=== PATIENT | male | born 1940 | race Caucasian/White ===

== ENCOUNTER 2016-09-05 11:55 | Observation (INO) | payer OTHER ==
--- NOTE | 2016-09-04 09:54 | MH ---
cc: LEWIS ECHEVERRIA DMD DATE OF : 1940 DATE OF ADMISSION: 09/05/2016 ADMITTING DIAGNOSIS: HISTORY OF PRESENT ILLNESS: This is a 75 year-old male who came to my office on August 22, 2016. On August 07, 2016, he had a ladder that fell on him when he was putting it away and struck him in the face/eye region. He was then taken to [facility] where he went, and was transferred to [facility] in [place]. As per the patient he was there for four days, not only waiting for the swelling to come down but waiting for an ophthalmology consult. He reports that the plastic surgeon did not do surgery and the patient was discharged without the surgery. He was not seen by any dry pan feeder. He called to follow up with the dry pan feeder but then he was not given any follow up appointment. He then proceeded to go see Dr. Gastelum, his primary care, who then referred him to my office. I have seen and examined this patient. His chief complaint is that he has a double/blurred vision, depth perception is off to different heights. He reports he has to turn his head to line up his vision. Even when he looks at a computer screen he has diplopia. He has seen the dry pan feeder. Now he is back to my office for the history and physical. PAST MEDICAL HISTORY: 1. Coronary artery disease. 2. History of NH 2013. 3. Hyperlipidemia. 4. Chronic kidney disease stage II. 5. History of colon polyps. 6. Impaired glucose tolerance. 7. History of iritis. 8. History of hypertension. PAST MEDICAL HISTORY 1. Loratadine 2. Aspirin 325 mg 1 tablet daily 3. Furosemide 20 mg tablet 4. Carvedilol 3.25 milligrams tablet. 5. Nitrostat 0.4 milligrams tablet sublingual. 6. Temazepam 50 milligram capsule. 7. Atrovent 40 milligrams. 8. Benzoate 200 milligrams ALLERGIES NO KNOWN DRUG ALLERGIES. SOCIAL HISTORY Denies any tobacco, alcohol, any illicit drug use. PAST SURGICAL HISTORY: July 31, 2013, CABG x5. FAMILY HISTORY: Father with stroke, heart attack, rheumatoid arthritis, NH. Mother with stroke, arthritis. Siblings: Heart attack, diagnosed with NH. REVIEW OF SYSTEMS General: Alert, awake and oriented x3 in no acute distress. Head/eyes: Reports double vision, straight gaze also looking up and down. History of blurry vision in that eye. History of some blurry vision. Past history of iritis. Cardiovascular: Denies any chest pain, palpitation, any tachycardia. History of coronary artery bypass graft. History of hyperlipidemia and hypertension as per previous history of present illness. Respiratory: Denies any cough, any chest congestion, any wheezing, shortness of breath. Gastrointestinal: Denies any abdominal discomfort, IBS, peptic ulcer disease, denies diarrhea. Musculoskeletal: Denies limitation of movement, any joint swelling, any muscle pain. Neurological: Denies any seizures, neurological disorders. Endocrine: Denies any hormonal disturbances, any diabetes mellitus. Mouth. Denies any dental difficulties. Denies any intraoral discomfort. PHYSICAL EXAMINATION: Vital signs: Stable. General: Alert, awake and oriented x3, in no acute distress. HEENT: Minimal left periorbital ecchymosis, faint. Diplopia, upward gaze. He also has some blurry vision, residual. Also reports some if he has to turn his head a little bit to align the vision better. Pupils are more equal today. The left is 5 millimeter, the right is 3 millimeter. Previously he had a mal-shaped pupil on the left eye. He has some diplopia in the downward gaze and the upward gaze. Facial bones, nasal bones palpated. No crepitus. Positive range of movement of the neck. Extraocular movements are not intact as he has limited elevation in the upgaze specifically, more than on the lower gaze. Nose: Airway is patent. Symmetrical. Head: The rest of the head exam is normal. Neck: Positive range of movement of the neck. No tenderness noted. Cardiovascular: Regular rate and rhythm. Respiratory: Clear to auscultation bilaterally. GI: Positive bowel sounds. Abdomen: Nontender, nondistended, soft. Musculoskeletal: Positive range of movement, upper extremities, lower extremities. Neurological: Cranial nerves II-XII grossly intact. IMAGING STUDIES: CT scan of the left face orbital region shows a blowout fracture of the left orbit. There is herniation of content extending going posteriorly. It is a severe defect. Also it showed previously a retrobulbar hemorrhage anterior to the optic nerve. EKG shows a sinus rhythm. History of inferior infarct. ASSESSMENT/PLAN This is a 75-year-old male status post ladder falling on him on August 07, 2016, which resulted in him having the left orbital floor blow out fracture. He has affected his vision with a history of blurry vision and diplopia, now with straight gaze, but also looking up and looking down. He also says that he has to turn his head to line up his vision. He was not operated on previously. At this point he is going to require reconstruction of the left orbital floor with titanium mesh. He has already seen his primary physician, Dr. Gastelum, at [phone], and then he has also seen the dry pan feeder, Dr. Rodriguez, , who is also recommending surgery. No ocular surgery required. He is just going to follow up with him. Benefits, risks indication of the procedure, procedure in detail and the options of no treatment were all discussed with this patient and his . Risks not limited any postop pain, infection, bleeding, damage to the adjacent soft tissue, hard tissue, anesthesia complications, which includes , malunion, nonunion of the orbital floor, with a mesh, vision disturbances, including blindness, further surgeries as required. Also, entropion, ectropion, enophthalmos and exophthalmos. All questions and concerns were addressed. Lewis Echeverria DMD RRT/LUIS MIGUEL /8:44 AM /9:10 AM HIRO
[~2016-09-05] VITALS: Ht 172.7 cm; Wt 90.5 kg
[2016-09-05] MEDS ORDERED: ONDANSETRON HCL 4 MG/2 ML VIAL IV PUSH ONE (12:00)
[2016-09-05] MEDS ORDERED: NEOSTIGMINE 3 MG/3 ML SYR IV ONE (12:00)
[2016-09-05] MEDS ORDERED: PHENYLEPH/NS 1000 MCG/10 ML SYR IV ONE (12:00)
[2016-09-05] MEDS ORDERED: LACTATED RINGER'S 1000 ML INJ 1,000 ML IV ONE (12:00)
[2016-09-05] MEDS ORDERED: PROPOFOL 200 MG/20 ML AMP IV ONE (12:00)
[2016-09-05] MEDS ORDERED: ASPI325T PO (12:37)
[2016-09-05] MEDS ORDERED: FURO20TA PO (12:37)
[2016-09-05] MEDS ORDERED: CARV3.12 PO (12:37)
[2016-09-05] MEDS ORDERED: NITR0.4S SL (12:38)
[2016-09-05] MEDS ORDERED: ATOR40TA16 PO (12:39)
[2016-09-05] MEDS ORDERED: TEMA15CA PO (12:39)
[2016-09-05] MEDS ORDERED: ceFAZolin 1,000 MG/NS 100 ML IV SCH ×2 (12:45)
[2016-09-05] MEDS ORDERED: INSULIN HUMAN REGULAR 1,000 UNITS/10 ML VIAL SQ PRN (12:45)
[2016-09-05] MEDS ORDERED: SODIUM CHLORID 0.9% 500 ML IV PRN (12:45)
[2016-09-05] MEDS ORDERED: CHLORHEXIDINE GLUCONATE 2 % 1 PACK (2 CLOTHS) TOPICAL PRN (12:45)
[2016-09-05] MEDS ORDERED: LACTATED RINGER'S 1000 ML IV PRN (12:45)
[2016-09-05] MEDS ORDERED: METOPROLOL TARTRATE 25 MG TAB PO PRN (12:45)
[2016-09-05] MEDS ORDERED: POVIDONE IODINE 5% (ANTISEPSIS KIT) 4 APPLICATIONS EACH NARE PRN (12:45)
[2016-09-05 13:25] LABS: AUTOMATED NEUTROPHIL # 2.3 TH/MM3 (1.8-7.7); BASOPHIL % 0.3 % (0.0-2.0); EOSINOPHIL # 0.1 TH/MM3 (0-0.4); EOSINOPHIL % 2.5 % (0.0-4.0); HEMATOCRIT 44.2 % (39.0-51.0); HEMO FLAGS DIFF FINAL; LYMPH % 25.4 % (9.0-44.0); MEAN CELL VOLUME 93.4 FL (80.0-100.0); MEAN CORPUSCULAR HEMOGLOBIN 31.7 PG (27.0-34.0); MEAN CORPUSCULAR HGB CONC 33.9 % (32.0-36.0); MONO % 15.9 % (0.0-8.0); NEUT % 55.9 % (16.0-70.0); PLATELET COUNT 139 TH/MM3 (150-450); RED BLOOD COUNT 4.73 MIL/MM3 (4.50-5.90); RED CELL DISTRIBUTION WIDTH 13.3 % (11.6-17.2)
[2016-09-05] MEDS ORDERED: SODIUM CHLORIDE 0.9% 20 ML VIAL ONE (13:41)
[2016-09-05] MEDS ORDERED: BALANCED SALT SOLN OPHT IRRIG 15 ML BTL ONE ×2 (13:41→15:29)
[2016-09-05] MEDS ORDERED: GELATIN 12 MM/7 MM FOAM ONE (13:42)
[2016-09-05] MEDS ORDERED: ceFAZolin INJ 1,000 MG VIAL ONE (13:42)
[2016-09-05] MEDS ORDERED: DEXAMETHASONE SOD PHOS 4 MG/ML VIAL ONE ×2 (13:42→13:50)
[2016-09-05] MEDS ORDERED: LIDOCAINE 1%/EPINEPHrine 1:100,000 SOLN 20 ML VIAL ONE (13:42)
[2016-09-05] MEDS ORDERED: LIDOCAINE 2%/EPINEPHrine 1:100,000 30ML MDV ONE (13:42)
[2016-09-05] MEDS ORDERED: fentaNYL CITRATE 250 MCG/5 ML AMP ONE (13:50)
[2016-09-05] MEDS ORDERED: MIDAZOLAM HCL 2 MG/2 ML VIAL ONE (13:50)
[2016-09-05] MEDS ORDERED: ARTIFICIAL TEARS OPTH OINT 3.5 APPLIC/3.5 GM TUBO ONE (13:50)
[2016-09-05] MEDS ORDERED: methylPREDNISolone SOD SUCC 125 MG/2 ML VIAL ONE (16:00)
[2016-09-05] MEDS ORDERED: TEMAZEPAM 15 MG CAP PO PRN (16:30)
[2016-09-05] MEDS ORDERED: FUROSEMIDE 20 MG TAB PO PRN (16:30)
[2016-09-05] MEDS ORDERED: NITROGLYCERIN 0.4 MG SL 25 TABS/BTL SL PRN (16:30)
--- NOTE | 2016-09-05 18:27 | PD.CONS ---
HPI Service [facility] Consult Requested By Dr. Echeverria Reason for Consult Medical management s/p reconstruction of the left orbital floor with titanium mesh Primary Care Physician Fannie Gastelum MD Diagnoses: History of Present Illness Mr. Tao is a 76-year-old male with a known history of CAD, history of [place], CKD , and hypertension who sustained a left orbital floor blowout in July of this year, after a ladder fell on his head and struck his eye. He was seen at [facility] in [facility] and then transferred to [place] for further treatment. At that time patient did not have surgery and was discharged to see an radio frequency engineer in the outpatient setting. Per patient, due to miscommunication he never followed-up with an radio frequency engineer but was seen by his PCP who referred him to Dr. Echeverria. Since the incident, the patient has complaint of blurry vision in both eyes and diplopia. At this time, patient is seen in the PACU, with complaints of pain in the left eye, numbness in the face and continued blurry vision. Denies any recent fever, chills, cough, chest pain or shortness of breath. Review of Systems Eyes: COMPLAINS OF: Blurred vision, Diplopia, Eye pain, Double Vision Except as stated in HPI: all other systems reviewed are Neg Past Family Social History Allergies: Coded Allergies: No Known Allergies (Unverified , 09/05/16) Past Medical History Coronary artery disease. History of MN 2013. Hyperlipidemia. Chronic kidney disease stage II. History of colon polyps. Impaired glucose tolerance. History of iritis. History of hypertension. Past Surgical History CABG x 5 in 2013 Reported Medications Reported Atorvastatin (Atorvastatin Calcium) 40 Mg Tab 40 Mg PO DAILY Temazepam 15 Mg Cap 15 Mg PO HS PRN Nitrostat SL (Nitroglycerin) 0.4 Mg Subl 0.4 Mg SL DIRECTED PRN 1 tablet under the tongue as needed for chest pain. Repeat every 5 minutes for a total of 3 DOSES or call 911 if NO relief. Furosemide 20 Mg Tab 20 Mg PO DAILY PRN Aspirin 325 Mg Tab 325 Mg PO DAILY Carvedilol 3.125 Mg Tab 3.125 Mg PO DAILY Active Ordered Medications Current Medications Medications (Trade) Dose Ordered Sig/Maci Route Start Time Stop Time Status Last Admin Lactated Ringer's 1,000 ml @ 30 mls/hr Q24H PRN IV 09/05/16 12:45 09/08/16 12:44 09/05/16 13:10 (NS 500 ml Inj) 500 ml @ 30 mls/hr [id number] PRN IV 09/05/16 12:45 09/08/16 12:44 (Coreg) 3.125 mg DAILY PO 09/06/16 09:00 (Lasix) 20 mg DAILY PRN PO 09/05/16 16:30 (Nitrostat Sl) 0.4 mg UNSCH PRN SL 09/05/16 16:30 (Restoril) 15 mg HS PRN PO 09/05/16 16:30 (Lipitor) 40 mg DAILY PO 09/05/16 18:00 Family History Family history significant for CVA on both maternal and paternal side. Father also history of an MN. Social History Patient denies tobacco use. Admits to occasional alcohol use. Denies any illicit drug use. Physical Exam Vital Signs Vital Signs Date Time Temp Pulse Resp B/P Pulse Ox O2 Delivery O2 Flow Rate FiO2 09/05/16 15:45 98.5 85 12 155/84 96 Nasal Cannula 2 Physical Exam GENERAL: A well-nourished, well-developed patient, in NAD, seen in PACU. SKIN: No rashes, ecchymoses or lesions. Cool and dry. HEENT: Left eye ecchymosis noted, tenderness noted around left eye. Pain noted with eye movement, extraocular motions intact. Normocephalic. Pupils equal round and reactive. No injection or drainage. Nose without bleeding, purulent drainage or septal hematoma. Airway patent. NECK: Trachea midline. No JVD or lymphadenopathy. Supple, nontender, no meningeal signs. CARDIOVASCULAR: Regular rate and rhythm without murmurs, gallops, or rubs. RESPIRATORY: CTA. Breath sounds equal bilaterally. No wheezes, rales, or rhonchi. GASTROINTESTINAL: Abdomen soft, non-tender, nondistended. No hepato-splenomegaly , or palpable masses. No guarding. MUSCULOSKELETAL: Extremities without clubbing, cyanosis, or edema. No joint tenderness, effusion, or edema noted. No calf tenderness. Negative Homans sign bilaterally. NEUROLOGICAL: Awake and alert. Cranial nerves II through XII intact. Motor and sensory grossly within normal limits. Five out of 5 muscle strength in all muscle groups. Normal speech. Laboratory Laboratory Tests Test 09/05/16 13:10 White Blood Count 4.0 Red Blood Count 4.73 Hemoglobin 15.0 Hematocrit 44.2 Mean Corpuscular Volume 93.4 Mean Corpuscular Hemoglobin 31.7 Mean Corpuscular Hemoglobin 33.9 Concent Red Cell Distribution Width 13.3 Platelet Count 139 Mean Platelet Volume 8.0 Neutrophils (%) (Auto) 55.9 Lymphocytes (%) (Auto) 25.4 Monocytes (%) (Auto) 15.9 Eosinophils (%) (Auto) 2.5 Basophils (%) (Auto) 0.3 Neutrophils # (Auto) 2.3 Lymphocytes # (Auto) 1.0 Monocytes # (Auto) 0.6 Eosinophils # (Auto) 0.1 Basophils # (Auto) 0.0 CBC Comment DIFF FINAL Differential Comment Result Diagram: 09/05/16 1310 Assessment and Plan Assessment and Plan Mr. Tao is a 76-year-old male with a known history of CAD, history of MN, CKD , and hypertension who sustained a left orbital floor blowout in July of this year, after a ladder fell on his head and struck his eye. Left orbital blowout fracture secondary to trauma, s/p reconstruction of the left orbital floor with titanium mesh performed by Dr. Echeverria today 09/05: - Place in Observation overnight - Control pain, Oxycodone per pain scale, Morphine available PRN for breakthrough Other chronic medical problems include CAD, hypertension and CKD which are stable at this time, resume home medications as indicated. BMP and CBC in am. DVT prophylaxis: SCDs/TEDs Written by Vibha Covarrubias, acting as scribe for Dr. Russo on 09/05/16 at 18:54. This note was transcribed by scribe [MARIBEL West]. I, Dr. Mirella Russo personally performed the history, physical exam, and medical decision making; and confirmed the accuracy of the information in the transcribed note. Authenticated by Dr. Mirella Russo on 09/05/16 at 19:13. Vibha Covarrubias Sep 05, 2016 18:27 Mirella Russo MD Sep 05, 2016 19:14
[2016-09-05] MEDS ORDERED: MORPHINE SULFATE 4 MG/ML INJ IV PUSH PRN (19:00)
[2016-09-05 20:00] VITALS: BP 149/82; PULSE 90; RESP 19; TEMP 100.9; O2SAT 93
[2016-09-05] MEDS: ATORVASTATIN 40 MG TAB PO SCH (21:59)
[2016-09-05] MEDS: oxyCODONE/ACETAMINOPHEN 5 MG/325 MG TAB PO PRN (21:59)
[2016-09-06] VITALS: BP 139/74; PULSE 89; RESP 20; TEMP 98.7; O2SAT 93
[2016-09-06 04:00] VITALS: BP 132/68; PULSE 86; RESP 20; TEMP 97.2; O2SAT 92
[2016-09-06] MEDS: oxyCODONE/ACETAMINOPHEN 5 MG/325 MG TAB PO PRN (05:13)
[2016-09-06 05:17] LABS: HEMATOCRIT 41.9 % (39.0-51.0); HEMO FLAGS DIFF FINAL; LYMPH % 4.8 % (9.0-44.0); LYMPHOCYTE # 0.4 TH/MM3 (1.0-4.8); MEAN CELL VOLUME 92.9 FL (80.0-100.0); MEAN CORPUSCULAR HEMOGLOBIN 32.2 PG (27.0-34.0); MEAN CORPUSCULAR HGB CONC 34.7 % (32.0-36.0); MONO % 2.1 % (0.0-8.0); NEUT % 93.1 % (16.0-70.0); PLATELET COUNT 160 TH/MM3 (150-450); RED BLOOD COUNT 4.51 MIL/MM3 (4.50-5.90); RED CELL DISTRIBUTION WIDTH 13.5 % (11.6-17.2); WHITE BLOOD COUNT 8.6 TH/MM3 (4.0-11.0)
[2016-09-06 05:28] LABS: BICARBONATE 24.3 MEQ/L (21.0-32.0)
[2016-09-06] MEDS ORDERED: SODIUM CHLOR 0.9% 1000 ML INJ 1,000 ML IV SCH (06:00)
[2016-09-06] MEDS: methylPREDNISolone SOD SUCC 125 MG/2 ML VIAL IV PUSH SCH ×3 (06:28→16:25)
[2016-09-06] MEDS: ceFAZolin 1,000 MG/NS 100 ML IV SCH ×4 (06:28→12:47)
--- NOTE | 2016-09-06 07:47 | HHI.PR ---
Subjective Remarks pod 1 s/p reconstruction of left orbital floor fracture with mesh pt seen and examined, at bedside AAOX3, NAD, reports vision is much improved, does not have to turn his head to see normal very minimal double vision, Objective Vital Signs Date Time Temp Pulse Resp B/P Pulse Ox O2 Delivery O2 Flow Rate FiO2 09/06/16 04:00 97.2 86 20 132/68 92 09/06/16 00:00 98.7 89 20 139/74 93 09/05/16 20:00 100.9 90 19 149/82 93 09/05/16 18:30 98.1 88 12 155/88 96 Room Air 09/05/16 18:00 90 12 161/84 96 Room Air 09/05/16 17:00 84 12 148/83 98 Room Air 09/05/16 16:45 82 12 136/79 98 Room Air 09/05/16 16:30 81 12 140/79 99 Room Air 09/05/16 16:15 81 12 144/84 99 Room Air 09/05/16 16:00 81 12 140/82 97 Room Air 09/05/16 15:45 98.5 85 12 155/84 96 Nasal Cannula 2 I/O 09/05/16 09/05/16 09/05/16 09/06/16 09/06/16 09/06/16 07:00 15:00 23:00 07:00 15:00 23:00 Intake Total 1200 ml 240 ml Output Total 10 ml 450 ml Balance 1190 ml -210 ml Intake Oral 240 ml Other 1200 ml Output Urine Total 450 ml Estimated Blood Loss 10 ml # Voids 4 0 # Bowel Movements 0 Result Diagram: 09/06/16 0458 09/06/16 0458 Objective Remarks PERRLA/EOMI + good visual acuity no entrapment, no diplopia/blurry vision mild left periorbital edema/ecchymosis minimal oozing heme wound margins well approximated Assessment and Plan Assessment and Plan s/p reconstruction of left orbital floor fx with mesh POD 1 progressing well ok to d/x to home from oms standpoint meds - solumedrol /depomedrol not given last night as ordered orders has to be resent to pharmacy today resume all home meds today including aspirin 325 mg today 1 more dose of solumedrol today, then followed by depomedrol advance to soft diet continue sinus precautions, no strenuous activity or exercises f/up 1week,, d/c rx in chart hydrocodone 7.5./325 #20 and Keflex 500 mg #21 s/p Jesse Bermudez DMD Sep 06, 2016 07:47
[2016-09-06 08:00] VITALS: BP 121/72; PULSE 77; RESP 16; TEMP 97.8; O2SAT 92
[2016-09-06] MEDS ORDERED: CARVEDILOL 3.125 MG TAB PO SCH (09:00)
[2016-09-06 09:35] VITALS: O2SAT 95
--- NOTE | 2016-09-06 09:41 | HHI.PR ---
Subjective Remarks Patient reports he is feeling OK. I discussed with Dr. Echeverria. He is cleared for discharge once he receives his steroids as ordered. Patient reports that his pain is controlled. Can see better. Objective Vitals Vital Signs Date Time Temp Pulse Resp B/P Pulse Ox O2 Delivery O2 Flow Rate FiO2 09/06/16 09:35 95 21 09/06/16 08:00 97.8 77 16 121/72 92 09/06/16 04:00 97.2 86 20 132/68 92 09/06/16 00:00 98.7 89 20 139/74 93 09/05/16 20:00 100.9 90 19 149/82 93 09/05/16 18:30 98.1 88 12 155/88 96 Room Air 09/05/16 18:00 90 12 161/84 96 Room Air 09/05/16 17:00 84 12 148/83 98 Room Air 09/05/16 16:45 82 12 136/79 98 Room Air 09/05/16 16:30 81 12 140/79 99 Room Air 09/05/16 16:15 81 12 144/84 99 Room Air 09/05/16 16:00 81 12 140/82 97 Room Air 09/05/16 15:45 98.5 85 12 155/84 96 Nasal Cannula 2 I/O 09/05/16 09/05/16 09/05/16 09/06/16 09/06/16 09/06/16 07:00 15:00 23:00 07:00 15:00 23:00 Intake Total 1200 ml 240 ml Output Total 10 ml 450 ml Balance 1190 ml -210 ml Intake Oral 240 ml Other 1200 ml Output Urine Total 450 ml Estimated Blood Loss 10 ml # Voids 4 0 # Bowel Movements 0 Result Diagram: 09/06/16 0458 09/06/16 0458 Objective Remarks GENERAL: This is a well-nourished, well-developed patient, in no apparent distress. EYE: Left eye with some ecchymoses. EOM intact. CARDIOVASCULAR: Regular rate and rhythm without murmurs, gallops, or rubs. RESPIRATORY: Clear to auscultation. Breath sounds equal bilaterally. No wheezes , rales, or rhonchi. GASTROINTESTINAL: Abdomen soft, non-tender, nondistended. Normal active bowel sounds MUSCULOSKELETAL: Extremities without clubbing, cyanosis, or edema. NEURO: Alert & Oriented x4 to person, place, time, situation. Moves all ext x4 A/P Assessment and Plan Mr. Tao is a 76-year-old male with a known history of CAD, history of [place], CKD , and hypertension who sustained a left orbital floor blowout in July of this year, after a ladder fell on his head and struck his eye. Left orbital blowout fracture secondary to trauma, s/p reconstruction of the left orbital floor with titanium mesh performed by Dr. Echeverria 09/05. Patient was admitted overnight for observation and continued treatment with steroids and antibiotics. He did well post op and was cleared by OMFS for discharge. Other chronic medical problems include CAD, hypertension and CKD which are stable at this time, resume home medications as indicated. Discharge Planning DC home in good condition diet: Heart healthy Activity: regular as tolerated Meds: Per Med rec. Keflex and pain medications per Dr. Echeverria Follow up: With Mirella Dubose MD Sep 06, 2016 09:41
[2016-09-06] MEDS: ATORVASTATIN 40 MG TAB PO SCH (09:47)
[2016-09-06 12:00] VITALS: BP 120/64; PULSE 85; RESP 17; TEMP 98.6; O2SAT 91
[2016-09-06] MEDS ORDERED: methylPREDNISolone ACETATE 80 MG/ML VIAL IM ONE (18:15)
--- NOTE | 2016-09-06 22:33 | MP ---
cc: DALTONMACLEWIS DMD (Fax copy to Dr. Echeverria's office) DATE OF SURGERY 09/05/16 PREOPERATIVE DIAGNOSIS Left orbital floor blowout fracture. POSTOPERATIVE DIAGNOSIS Left orbital floor blowout fracture. PROCEDURE Reconstruction of the left orbital floor blowout fracture with KLS titanium mesh. ANESTHESIA General. also 2% lidocaine with 1:100,000 epinephrine, approximately [address] Coty Echeverria FOOTWEAR SALES COORDINATOR Chyna Cool COMPLICATIONS None ESTIMATED BLOOD LOSS Minimal DISPOSITION The patient tolerated the procedure well, extubated and taken to the PACU. INDICATIONS FOR PROCEDURE This is a 75-year-old male who on August 07, 2016 had a ladder fall on him resulting him having this left orbital floor blowout fracture. He has diplopia. Blurry vision. He was taken previously to [facility] and was transferred for Hospital in [place]. He was not treated. He was discharged. He presented to my office recently with this diplopia and vision disturbances. He was seen by the housekeeping lead. The plan is now repair his orbital floor fracture. There is herniation of content on the left orbital floor fracture. Benefits, risks, indications of the procedure, procedure in detail and the options of no treatment were all discussed with this patient including alternatives. Risks not limited any postop pain, infection, bleeding, damage to the adjacent soft tissue, hard tissue, anesthesia complications, visual disturbance including blindness, further surgeries as required. All questions and concerns were addressed. Consent is signed in the chart. The patient was met perioperatively. Past medical history was reviewed and updated, no changes noted. The patient had previously been advised to stop his aspirin since September 01, 2016. Left side of the face was now marked. The patient was taken to operating suite #8 put on the table in supine position. He underwent oral intubation. Both eyes were lubricated. The right eye was taped shut. At this time, a time-out was taken to identify the patient, the site, the procedure, the surgeon and all were in agreement. The patient was prepped on the left side of the face with Betadine. I went to the sink to scrub to wear the sterile attire. The patient draped normal sterile fashion. 2% lidocaine with 100,000 epinephrine injected into the region of the left lower eyelid. A 2-0 silk suture was now used to go through the tarsal plate to help vanda the eyelid. Once this was done, a Sebas retractor was used to protect the globe and to palpate the orbital rim. Then a periosteal elevators was also used to help palpate the orbital rim. A Bovie was now used to cut down through soft tissue and through the fascia consistent with a transconjunctival approach. A Kitner was used to separate the soft tissue. Then again a Bovie was used to go right down to the orbital rim. A molt elevator was then used to gently reflect off the periosteum and as I am going on the floor of the orbit going posteriorly and on the floor of the orbit lifting off the periosteum. I dropped into the fracture. I kept dissecting going laterally and medially and going posterior. I also used a Single ended skin hook to lift up the orbital floor. Lift up the contents with the molt. Removed the Sebas retractor, put a malleable retractor. I kept dissecting, dissecting going posteriorly. When I felt that there was good adequate stop medial lateral and posteriorly, the contents were lifted. A KLS titanium mesh was contoured into position to get into place using a 4-mm screw. A small little hole was drilled on the orbital rim to help attach the plate to the bone. Once this was done, a forced duction test was done. No entrapment that is noted. The patient does not appear to have any entrapment. Once again rechecked the floor, everything is stable at this point. Both the eyes were now irrigated with BSS solution. The 2-0 silk suture was now removed. The patient tolerated procedure well. No complication noted. All sponge and counts were accounted for at the end of the case. Lewis Echeverria DMD RRT/ /3:47 PM /10:12 PM HIRO
== END 2016-09-06 17:28 | disposition home or self-care (01) ==
LOC: HSDC 11:55 → HSDI 18:49 → N07A 19:00
PROVIDERS: ADMIT Family Medicine; ATTEND Family Medicine
DX: S02.32XB Fracture of orbital floor, left side, initial encounter for open fracture (principal); I12.9 Hypertensive chronic kidney disease with stage 1 through stage 4 chronic kidney disease, or unspecified chronic kidney disease; N18.2 Chronic kidney disease, stage 2 (mild); H53.2 Diplopia; I25.10 Atherosclerotic heart disease of native coronary artery without angina pectoris; E78.5 Hyperlipidemia, unspecified; I25.2 Old myocardial infarction; Z79.82 Long term (current) use of aspirin; Z86.010 Personal history of colon polyps; Z95.1 Presence of aortocoronary bypass graft; W11.XXXA Fall on and from ladder, initial encounter
CPT/HCPCS: 00190; 21390; 80048; 85025; C1713; G0378; J0690; J1040; J1100; J2250; J2370; J2405; J2710; J2930; J3010; J7030; J7120